=== PATIENT | female | born 1975 | race Caucasian/White ===

== ENCOUNTER → 2016-08-20 | Outpatient (CLI) | payer OTHER ==
[~2016-08-20] MED LIST: DEXL30CA2 PO; DEXL60CA PO; HYDR-3730 PO; LEVO25TA5 PO; LEVO75TA PO; PANT40TA2 PO; SUCR1TAB36 PO
--- OUTSIDE RECORDS SUMMARY | 2016-08-20 10:23 | XMS REPORT | Continuity of Care Document ---
Author Author [facility] Organization [facility] Address Unknown Phone Unavailable Care Team Providers Care Can Repairer Name Role Phone BIANCA KRAMER MD PCP Insurance Providers Payer Name Policy Number Subscriber Name Relationship [employer] [id number] Yoandy Byrd O 01 Advance Directives Directive Response Recorded Date/Time Advance Directives No 03/28/16 7:19am Health Care Power of Casting Technician No 03/28/16 7:19am Organ Donor No 03/28/16 7:19am Resuscitation Status Full Code 03/28/16 7:19am Problems No problem information available. Medications Current Home Medications Medication Dose Units Route Directions Days/Qty Instructions Start Date Dexlansoprazole 60 Mg 60 Mg Oral Daily 10/09/15 Pantoprazole Sodium 40 Mg 40 Mg Oral Daily 10/09/15 Levothyroxine Sodium 75 Mcg 75 Mcg Oral Daily 10/09/15 Hydrocodone/Acetaminophen 1 Each 1-2 Each Oral Every 4HRS 35 10/11/15 Past Home Medications Medication Directions Ordered Status Levothyroxine Sodium 25 Mcg Tablet, 25 Mcg Oral Daily 09/12/15 Discontinued Dexlansoprazole 30 Mg Cap., 30 Mg Oral Daily 09/12/15 Discontinued Pantoprazole Sodium 40 Mg Tablet.dr, 40 Mg Oral Daily 09/12/15 Discontinued Sucralfate 1 Gm Tablet, 1 Gm Oral Every 6 Hours 09/12/15 Discontinued Social History Social History Problem Response Recorded Date/Time Alcohol Use Rarely Uses 10/11/2015 8:28am Recreational Drug Use No 10/11/2015 8:28am Recent Foreign Travel No 03/28/2016 7:07am HIV/AIDS No 10/11/2015 8:28am Do you dip or chew tobacco? No 09/12/2015 8:45am Hospital Discharge Instructions No hospital discharge instructions. Plan of Care Discharge Date 03/28/16 7:49am Instructions/Education Provided DR. [facility] Prescriptions See Medication Section Functional Status No functional status results. Allergies, Adverse Reactions, Alerts Allergen Type Severity Reaction Status Last Updated No Known Allergies ([id number]) Allergy Unknown Active 08/17/15 Immunizations No immunization records. Vital Signs Acute Vital Signs Vital Response Date/Time Temperature (Fahrenheit) 97.5 degrees F (97.6 - 99.5) 03/28/2016 7:23am Temperature (Calculated Celsius) 36.01801 degrees C (36.4 - 37.5) 03/28/2016 7:23am Temperature Source Tympanic 03/28/2016 7:23am Pulse Rate (adult) 70 bpm (60 - 90) 03/28/2016 7:47am Respiratory Rate 16 bpm (12 - 24) 03/28/2016 7:47am O2 Sat by Pulse Oximetry 99 % (88 - 100) 03/28/2016 7:47am Blood Pressure 151/84 mm Hg 03/28/2016 7:47am Blood Pressure Mean 100 mm Hg 03/28/2016 7:23am Pain Numeric Pain Scale 0-No Pain 03/28/2016 7:47am Height (Feet) 5 feet 03/28/2016 7:19am Height (Inches) 7.00 inches 03/28/2016 7:19am Height (Calculated Centimeters) 170.751660 cm 03/28/2016 7:19am Weight (Pounds) 130 pounds 03/28/2016 7:19am Weight (Ounces) 0.0 oz 03/28/2016 7:19am Weight (Calculated Grams) 90716.01 gm 03/28/2016 7:19am Weight (Calculated Kilograms) 58.683965 kilograms 03/28/2016 7:19am Calculated BMI 20.4 03/28/2016 7:19am Results No known relevant diagnostic tests, laboratory data and/or discharge summary. Procedures No known history of procedures. Encounters Encounter Location Arrival/Admit Date Discharge/Depart Date Attending Provider Departed Clinic [facility] 03/28/16 7:07am 03/28/16 7: 49am SAMARA VAIL MD
--- NOTE | 2016-08-21 18:31 | Diagnostic Imaging Report ---
Bilateral screening mammogram with implants views. The current study was also evaluated with a Computer Aided Detection (CAD) system. INDICATION: Screening. No current complaints stated on the questionnaire. COMPARISON: 07/11/15. FINDINGS: The breasts are composed of extremely dense parenchyma which would decrease mammographic sensitivity. There are bilateral subpectoral symmetric-appearing implants with no significant change demonstrated from the prior exam. No suspicious cluster of calcification or architectural distortion is noted. Allowing for technique and positional differences, no suspicious change is seen. IMPRESSION: Dense breasts with no definite change. ACR BI-RADS Category 2: Benign findings. Result letter will be mailed to the patient. Note: At least 10% of breast cancer is not imaged by mammography. Dictated by: Dictated on workstation # [id number]
== END ==
LOC: RAD 10:20
PROVIDERS: ATTEND Obstetrics & Gynecology
DX: Z12.31 Encounter for screening mammogram for malignant neoplasm of breast (principal)

== ENCOUNTER → 2017-08-21 | Outpatient (CLI) | payer OTHER ==
--- NOTE | 2017-08-21 18:22 | Diagnostic Imaging Report ---
INDICATION: Screening. At this time there are no current complaints. EXAMINATION: Bilateral digital screening mammogram with CAD. The current study was also evaluated with a Computer Aided Detection (CAD) system. COMPARISON: This study was compared to the prior exams of 08/20/2016, 07/11/15 and 07/21/14. FINDINGS: There are bilateral breast implants in place. The implants appear to be intact. There is no sign of a extracapsular rupture of either implant. The fibroglandular tissue overlying each implant is dense. This does limit the sensitivity of this exam. Overall, there does not appear to been any significant change. There is no primary or secondary sign of malignancy noted. IMPRESSION: 1. There is no evidence for malignancy. 2. The implants appear stable. ACR BI-RADS Category 1: Negative. Result letter will be mailed to the patient. Note: At least 10% of breast cancer is not imaged by mammography. Dictated by: Dictated on workstation # [id number]
== END ==
LOC: RAD 10:00
PROVIDERS: ATTEND Nurse Practitioner Family
DX: Z12.31 Encounter for screening mammogram for malignant neoplasm of breast (principal); Z98.82 Breast implant status
CPT/HCPCS: 77067

== ENCOUNTER → 2018-08-27 | Outpatient (CLI) | payer OTHER ==
[2018-08-27 08:55] LABS: BASOPHILS # (AUTO) 0.1 10^3/uL (0.0-0.1); BASOPHILS % (AUTO) 1 % (0-10); EOSINOPHILS # (AUTO) 0.1 10^3/uL (0.0-0.3); EOSINOPHILS % (AUTO) 3 % (0-10); HEMATOCRIT 37 % (35-52); HEMOGLOBIN 12.2 G/DL (11.5-16.0); LYMPHOCYTES # (AUTO) 2.4 X 10^3 (1.0-4.0); LYMPHOCYTES % (AUTO) 53 % (12-44); MEAN CORPUSCULAR HEMOGLOBIN 30 PG (25-34); MEAN CORPUSCULAR HGB CONC 33 G/DL (32-36); MEAN CORPUSCULAR VOLUME 89 FL (80-99); MONOCYTES # (AUTO) 0.4 X 10^3 (0.0-1.0); MONOCYTES % (AUTO) 9 % (0-12); NEUTROPHILS # (AUTO) 1.5 X 10^3 (1.8-7.8); NEUTROPHILS % (AUTO) 34 % (42-75); PLATELET COUNT 256 10^3/uL (130-400); RED BLOOD COUNT 4.12 10^6/uL (4.35-5.85); RED CELL DISTRIBUTION WIDTH 12.9 % (10.0-14.5); WHITE BLOOD COUNT 4.5 10^3/uL (4.3-11.0)
[2018-08-27 09:20] LABS: ALANINE AMINOTRANSFERASE 18 U/L (0-55); ALBUMIN 4.6 GM/DL (3.2-4.5); ALKALINE PHOSPHATASE 80 U/L (40-136); BILIRUBIN,TOTAL 0.4 MG/DL (0.1-1.0); BUN/CREATININE RATIO 19; CALCIUM 9.7 MG/DL (8.5-10.1); CARBON DIOXIDE 25 MMOL/L (21-32); CHLORIDE 103 MMOL/L (98-107); CHOLESTEROL 233 MG/DL (< 200); CREATININE SERUM 0.94 MG/DL (0.60-1.30); GFR ESTIMATED > 60; GLUCOSE 86 MG/DL (70-105); HDL CHOLESTEROL 61 MG/DL (40-60); POTASSIUM 4.3 MMOL/L (3.6-5.0); SODIUM 139 MMOL/L (135-145); TOTAL PROTEIN 7.2 GM/DL (6.4-8.2); TRIGLYCERIDES 104 MG/DL (<150); VLDL CHOLESTEROL 21 MG/DL (5-40)
[2018-08-27 09:22] LABS: ERYTHROCYTE SEDIMENTATION RATE 21 MM/HR (0-20)
[2018-08-27 09:40] LABS: FREE T4 (FREE THYROXINE) 1.09 NG/DL (0.70-1.48)
--- NOTE | 2018-08-27 11:02 | Diagnostic Imaging Report ---
INDICATION: Routine screening. COMPARISON: 08/21/2017 and 07/11/2015. TECHNIQUE: 2D and 3D bilateral screening mammography was performed with CAD. FINDINGS: Both breasts are heterogeneously dense, limiting the sensitivity of mammography. Bilateral subpectoral breast implants are noted. The implant contours appear to be stable. The parenchymal pattern is stable. No mass or malignant appearing microcalcifications are seen. The axillae are unremarkable. IMPRESSION: No mammographic features suspicious for malignancy are identified. ACR BI-RADS Category 2: Benign findings. Result letter will be mailed to the patient. Note: At least 10% of breast cancer is not imaged by mammography. Dictated by: Dictated on workstation # [id number]
== END ==
LOC: RAD 08:31
PROVIDERS: ATTEND Obstetrics & Gynecology
DX: Z12.31 Encounter for screening mammogram for malignant neoplasm of breast (principal)
CPT/HCPCS: 36415; 77067; 80053; 80061; 84439; 84443; 85025; 85652

== ENCOUNTER → 2019-08-31 | Outpatient (CLI) | payer OTHER ==
--- NOTE | 2019-08-31 14:02 | Diagnostic Imaging Report ---
INDICATION: Routine screening. COMPARISON: 08/27/2018 and 08/21/2017. TECHNIQUE: 2D and 3D bilateral screening mammography was performed with CAD. FINDINGS: Bilateral subpectoral breast implants are noted. The implant contours remain stable. Both breasts show marked parenchymal heterogeneity and increased density, limiting the sensitivity of mammography. No dominant mass or malignant appearing microcalcifications are seen. The axillae are unremarkable. IMPRESSION: No mammographic features suspicious for malignancy are identified. ACR BI-RADS Category 2: Benign findings. Result letter will be mailed to the patient. Note: At least 10% of breast cancer is not imaged by mammography. Dictated by: Dictated on workstation # [id number]
== END ==
LOC: RAD 10:06
PROVIDERS: ATTEND Obstetrics & Gynecology
DX: Z12.31 Encounter for screening mammogram for malignant neoplasm of breast (principal)
CPT/HCPCS: 77067

== ENCOUNTER → 2021-01-31 | Outpatient (CLI) | payer OTHER ==
--- NOTE | 2021-01-31 13:18 | Diagnostic Imaging Report ---
Indication: Routine screening. Comparison is made with prior mammogram from 08/31/2019 and 08/27/2018. 2-D and 3-D bilateral screening mammography was performed with CAD. Both breasts are heterogeneously dense, limiting the sensitivity of mammography. Patient has bilateral breast implants. Implant contours are smooth. No mass or malignant appearing microcalcifications are seen. Axillae are unremarkable. IMPRESSION: BI-RADS Category 2 No mammographic features suspicious for malignancy are identified. ACR BI-RADS Category 2: Benign findings. Result letter will be mailed to the patient. Note: At least 10% of breast cancer is not imaged by mammography. Dictated by: Dictated on workstation # [id number]
== END ==
LOC: RAD 10:30
PROVIDERS: ATTEND Obstetrics & Gynecology
DX: Z12.31 Encounter for screening mammogram for malignant neoplasm of breast (principal)
CPT/HCPCS: 77063; 77067

== ENCOUNTER → 2021-05-08 | Outpatient (CLI) | payer OTHER ==
--- NOTE | 2021-05-08 14:15 | Diagnostic Imaging Report ---
Clinical indication: Patient with chronic low back pain. Patient having left leg numbness and increased low back pain. EXAM: MRI of the lumbar spine performed without IV contrast. Sequences include sagittal T2, sagittal T1, sagittal T2 fat-sat, and axial T2. COMPARISON: MRI of the lumbar spine without contrast dated 12/29/2015. FINDINGS: Again seen chronic bilateral L3 spondylolysis. There is no adjacent marrow edema. There is Modic type I degenerative signal changes involving the L3-L4 endplates. There is progression of hypertrophic disk spurs at the L3-L4 level. There is lumbar spine facet arthropathy which has progressed at the L3-L4 level. The visualized portions of the distal thoracic spinal cord, conus medullaris, and cauda equina nerve roots are unremarkable. The conus medullaris tip is seen at the lower L1 vertebral body level. There is no significant paraspinal soft tissue abnormality. T12-L1 and L1-L2: Unremarkable. L2-L3: There is moderate bilateral facet arthropathy which has slightly progressed. There is no significant central spinal canal or neural foramen narrowing. L3-L4: Again seen chronic bilateral L3 spondylolysis. There is development of roughly 1 to 2 mm of grade 1 anterolisthesis of L3 on L4. There is progression of severe disk disease changes with diffuse disk bulge with severe loss of disk space height. There is endplate irregularity. There is progression of spurs in the bilateral foraminal regions with slight decreased size of the disk herniation components. There is mild central canal narrowing. There is mild right neural foramen narrowing and severe left neural foramen narrowing which has slightly progressed. L4-L5: There is development of a mild diffuse disk bulge and mild bilateral facet arthropathy. There is mild central canal narrowing and moderate bilateral neural foramen narrowing which has progressed. L5-S1: There is mild bilateral facet arthropathy. There is no significant central spinal canal or neural foramen narrowing. IMPRESSION: 1: There is interval progression of multilevel lumbar spine degenerative disk disease which is described above. 2: There is again seen chronic bilateral L3 spondylolysis with interval development of subtle grade 1 anterolisthesis of L3 on L4. There is progression of severe disk disease at the L3-L4 level with severe left neural foramen narrowing which has progressed. Dictated by: Dictated on workstation # [id number]
== END ==
LOC: RAD 10:34
PROVIDERS: ATTEND Family Medicine Sports Medicine
DX: M47.816 Spondylosis without myelopathy or radiculopathy, lumbar region (principal); M47.817 Spondylosis without myelopathy or radiculopathy, lumbosacral region; M51.26 Other intervertebral disc displacement, lumbar region; M51.36 Other intervertebral disc degeneration, lumbar region; M48.061 Spinal stenosis, lumbar region without neurogenic claudication; M43.16 Spondylolisthesis, lumbar region
CPT/HCPCS: 72148

== ENCOUNTER 2021-05-21 05:40 | Outpatient (CLI) | payer OTHER ==
[~2021-05-21] VITALS: Ht 170.2 cm; Wt 63.6 kg
--- NOTE | 2021-05-21 06:24 | HISTORY AND PHYSICAL ---
DATE OF SERVICE: COLONOSCOPY HISTORY AND PHYSICAL DATE OF ADMISSION: ____. HISTORY OF PRESENT ILLNESS: The patient is a 45-year-old white female referred by Dr. Richardson for her first screening colonoscopy. She denies bright red blood per rectum or melena and has no known family history for colon cancer, so she is deemed to be of average risk. She does; however, report that she only goes about every three days and then about half the time has to strain in order to pass harder stool, the other half not. This has been an issue for many years. She denies any associated abdominal pain or cramping. PAST SURGICAL HISTORY: Significant for cholecystectomy four years ago, tonsillectomy and adenoidectomy many years ago and at the age of 15, had a left cyst removed from her wrist, presumed ganglion. PAST MEDICAL HISTORY: Significant for hypothyroidism for which she is on Synthroid 75 mcg daily. She has some reflux for which she is on Protonix 40 mg daily and has disk herniation, lumbar spine with some back pain that she takes Voltaren for. 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 She is fully vaccinated for COVID. FAMILY HISTORY: Father living in his 70s and mother living in her 70s with no significant health problems. PHYSICAL EXAMINATION: GENERAL: Reveals a fit appearing white female in no acute distress. VITAL SIGNS: Blood pressure 134/70 and weight 153. HEENT: Unremarkable. CHEST: Clear to auscultation. CARDIOVASCULAR: Reveals a regular rate and rhythm without murmur, S3 or S4. ABDOMEN: Soft, supple without mass, organomegaly or tenderness. EXTREMITIES: Reveal no cyanosis, clubbing or edema. ASSESSMENT AND PLAN: The patient is set up for her first screening colonoscopy, judged to be of average risk. Considering lumbar surgery and after discussion, no abdominal pain with symptoms suggesting the possibility of pelvic floor dysfunction, possibly aggravated by nerve root compression. I did recommend consideration for seeing Lakisha Evans, a pelvic floor physical therapist. She also has a history suggesting stress urinary incontinence. Prep instructions with Suprep kit were given and questions were answered. I thank you for the referral of this pleasant lady. Job ID: [id number] DocumentID: [id number] Dictated Date: 04/29/2021 16:47:00 Roller Staker Date: 04/29/2021 17:07:36 Dictated By: MELISSA BALBUENA MD
[2021-05-21] MEDS ORDERED: ASCO500T17 PO (12:21)
[2021-05-21] MEDS ORDERED: DICL75TA2 PO (12:21)
[2021-05-21] MEDS ORDERED: OMG1KC PO (12:21)
[2021-05-21] MEDS ORDERED: ZINC50TA11 PO (12:21)
[2021-05-21] MEDS ORDERED: MV-M1TAB20 PO (12:21)
== END 2021-05-21 14:15 | disposition home or self-care (01) ==
LOC: PREOP 05:40
PROVIDERS: ATTEND Internal Medicine
DX: Z01.818 Encounter for other preprocedural examination (principal)

== ENCOUNTER 2021-05-24 07:31 | Day surgery (SDC) | payer OTHER ==
[2021-05-24] VITALS (7 sets, daily range): BP systolic 107–128; BP diastolic 59–81
[~2021-05-24] VITALS: Ht 170.2 cm; Wt 63.6 kg
[~2021-05-24 07:31] MED LIST changes: +ASCO500T17 PO; +DICL75TA2 PO; +MV-M1TAB20 PO; +OMG1KC PO; +ZINC50TA11 PO
[2021-05-24] MEDS ORDERED: LACTATED RINGERS 1,000 ML IV ONE (07:36)
[2021-05-24] MEDS ORDERED: LACTATED RINGERS 1,000 ML IV STA (07:42)
[2021-05-24] MEDS ORDERED: LIDOCAINE JELLY 2% 6 ML SYRINGE MM PRN (07:45)
--- NOTE | 2021-05-24 07:48 | Pre-Op Note & Conscious Sedat ---
Pre-Operative Progress Note H&P Reviewed The H&P was reviewed, patient examined and no changes noted. Date H&P Reviewed: May 24, 2021 Time H&P Reviewed: 07:48 Conscious Sedation Pre-Proced ASA Score 1 For ASA 3 and 4: Consider anesthesia and medical clearance. Also, for patients with a history of failed moderate sedation consider anesthesia. Airway Lungs Heart ASA score ASA 1: a normal healthy patient ASA 2: a patient with a mild systemic disease (mid diabetes, controlled hypertension, obesity ASA 3: a patient with a severe systemic disease that limits activity (angina, COPD, prior Myocardial infarction) ASA 4: a patient with an incapacitating disease that is a constant threat to life (CHF, renal failure) ASA 5: a moribund patient not expected to survive 24 hrs. (ruptured aneurysm) ASA 6: a declared brain- patient whose organs are being harvested. For emergent operations, add the letter E after the classification Mallampati Classification Grade 2 Sedation Plan Analgesia, Amnesia, Plan communicated to team members, Discussed options with patient/fam, Discussed risks with patient/fam The patient is an appropriate candidate to undergo the planned procedure, sedation, and anesthesia. The patient immediately re-assessed prior to indication. MELISSA BALBUENA MD May 24, 2021 07:48
[2021-05-24] MEDS ORDERED: MIDAZOLAM 2 MG/2 ML (VERSED) VIAL ONE (08:35)
[2021-05-24] MEDS ORDERED: PROPOFOL INJECTION 0 ML IV ONE (08:35)
[2021-05-24] MEDS ORDERED: PROPOFOL INJECTION 50 ML IV ONE (09:02)
--- NOTE | 2021-05-24 09:37 | Anesthesia-General Post-Op ---
MAC Patient Condition Mental Status/LOC: Same as Preop Cardiovascular: Satisfactory Nausea/Vomiting: Absent Respiratory: Satisfactory Pain: Controlled Complications: Absent Post Op Complications Complications None Follow Up Care/Instructions Patient Instructions None needed. Anesthesiology Discharge Order Discharge Order Patient is doing well, no complaints, stable vital signs, no apparent adverse anesthesia problems. No complications reported per nursing. ADELAIDA LÓPEZ CRNA May 24, 2021 09:37
--- NOTE | 2021-05-24 14:02 | OPERATIVE REPORT ---
DATE OF SERVICE: COLONOSCOPY SUMMARY INDICATION FOR THE PROCEDURE: Screening colonoscopy. DESCRIPTION OF PROCEDURE: Prior to undergoing colonoscopy, digital rectal evaluation was performed. Anal sphincter tone was normal and the perianal reflexes intact. There appears to be left lateral rectocele on digital inspection, which was otherwise unremarkable. No evidence for internal or external hemorrhoids were noted. The colonoscope was then inserted into the rectum and under direct visualization advanced to cecum. The cecum was identified by identification of ileocecal valve and cecal strap. Photographic documentation was obtained. Careful inspection was made as colonoscope withdrawn. Quality of prep was good. FINDINGS: There was no evidence for internal or external hemorrhoids. The rectum, sigmoid colon, descending colon, splenic flexure, transverse colon, and hepatic flexure were unremarkable. Present in the mid ascending colon was a diminutive 3 x 5 mm sessile polyp. It was biopsied and ablated with no subsequent blood loss. Remainder of the ascending colon and cecum were unremarkable. ASSESSMENT: One diminutive sessile polyp was removed via hot forceps from the mid ascending colon. We will await histopathology report, but if this is a neoplastic polyp, we recommend repeat surveillance colonoscopy in 5 years. Digital rectal evaluation under anesthesia suggests the possibility of left lateral rectocele. No other abnormalities noted on today's procedure. I thank you for the referral of this pleasant lady. Job ID: [id number] DocumentID: [id number] Dictated Date: 05/24/2021 09:28:22 Tunnel Elastic Operator Chainstitch Date: 05/24/2021 14:01:02 Dictated By: MELISSA BALBUENA MD MTDD
--- NOTE | 2021-05-28 12:56 | HISTORY AND PHYSICAL ---
DATE OF SERVICE: 05/24/2021 COLONOSCOPY HISTORY AND PHYSICAL DATE OF ADMISSION: HISTORY OF PRESENT ILLNESS: The patient is a 45-year-old white female referred by Dr. Richardson for her first screening colonoscopy. She denies bright red blood per rectum or melena and has no known family history for colon cancer, so she is deemed to be of average risk. She does; however, report that she only goes about every three days and then about half the time has to strain in order to pass harder stool. This has been an issue for many years. She denies any associated abdominal pain or cramping. PAST SURGICAL HISTORY: Significant for cholecystectomy four years ago, tonsillectomy and adenoidectomy many years ago and at the age of 15, had a left cyst removed from her wrist, presumed ganglion. PAST MEDICAL HISTORY: Significant for hypothyroidism for which she is on Synthroid 75 mcg daily. She has reflux for which she is on Protonix 40 mg daily and has disk herniation involving the lumbar spine with some back pain that she takes Voltaren for. 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 She is fully vaccinated for COVID. FAMILY HISTORY: Father living in his 70s and mother living in her 70s with no significant health problems. PHYSICAL EXAMINATION: GENERAL: Reveals a fit appearing white female in no acute distress. VITAL SIGNS: Blood pressure 134/70 and weight 153. HEENT: Unremarkable. CHEST: Clear to auscultation. CARDIOVASCULAR: Reveals a regular rate and rhythm without murmur, S3 or S4. ABDOMEN: Soft, supple without mass, organomegaly or tenderness. EXTREMITIES: Reveal no cyanosis, clubbing or edema. ASSESSMENT AND PLAN: The patient is set up for her first screening colonoscopy, judged to be of average risk. Considering lumbar surgery and after discussion, no abdominal pain with symptoms suggesting the possibility of pelvic floor dysfunction, possibly aggravated by nerve root compression. I did recommend consideration for seeing Lakisha Evans, a pelvic floor physical therapist. She also has a history suggesting stress urinary incontinence. Prep instructions with Suprep kit were given and questions were answered. I thank you for the referral of this pleasant lady. Job ID: [id number] DocumentID: [id number] Dictated Date: 04/29/2021 16:47:00 Licensed Audiologist Date: 04/29/2021 17:07:36 Dictated By: MELISSA BALBUENA MD <Dictated by MELISSA BALBUENA MD> <Electronically signed by MELISSA BALBUENA MD> 05/24/21 0717 [facility]
== END 2021-05-24 10:25 | disposition home or self-care (01) ==
LOC: ENDO 07:31
PROVIDERS: ATTEND Internal Medicine
DX: Z12.11 Encounter for screening for malignant neoplasm of colon (principal); K63.5 Polyp of colon; K63.89 Other specified diseases of intestine; K21.9 Gastro-esophageal reflux disease without esophagitis; E03.9 Hypothyroidism, unspecified; Z79.899 Other long term (current) drug therapy; Z79.890 Hormone replacement therapy; Z90.49 Acquired absence of other specified parts of digestive tract
CPT/HCPCS: 84703

== ENCOUNTER → 2022-04-07 | Outpatient (CLI) | payer OTHER ==
--- NOTE | 2022-04-07 11:52 | Diagnostic Imaging Report ---
INDICATION: Routine screening. Comparison is made with prior mammogram from 01/31/2021 and 08/29/2019. 2-D and 3-D bilateral screening mammography was performed with CAD. Bilateral subpectoral breast implants are again noted. Implant contours remain smooth. No definite evidence of extracapsular rupture is identified. Both breasts remain heterogeneously dense, limiting the sensitivity of mammography. The overall parenchymal pattern is stable. No mass or malignant-appearing microcalcifications are seen. Axillae are unremarkable. IMPRESSION: No mammographic features suspicious for malignancy are identified. ACR BI-RADS Category 2: Benign findings. Result letter will be mailed to the patient. Note: At least 10% of breast cancer is not imaged by mammography. BI-RADS Category 2 Dictated by: Dictated on workstation # [id number]
== END ==
LOC: RAD 10:45
PROVIDERS: ATTEND Obstetrics & Gynecology
DX: Z12.31 Encounter for screening mammogram for malignant neoplasm of breast (principal)
CPT/HCPCS: 77063; 77067

== ENCOUNTER → 2023-04-17 | Outpatient (CLI) | payer OTHER ==
--- NOTE | 2023-04-17 12:58 | Diagnostic Imaging Report ---
INDICATION: Routine screening. Comparison is made with prior mammogram from 04/07/2022 and 01/31/2021. 2-D and 3-D bilateral screening mammography was performed with CAD. Bilateral subpectoral breast implants again noted. Implant contours remain stable without evidence of extracapsular rupture. Both breasts remain heterogeneously dense, limiting the sensitivity of mammography. No mass or malignant-appearing microcalcifications are seen. Axillae are unremarkable. IMPRESSION: No mammographic features suspicious for malignancy are identified. ACR BI-RADS Category 2: Benign findings. Result letter will be mailed to the patient. Note: At least 10% of breast cancer is not imaged by mammography. BI-RADS Category 2 Dictated by: Dictated on workstation # [id number]
== END ==
LOC: RAD 10:44
PROVIDERS: ATTEND Obstetrics & Gynecology
DX: Z12.31 Encounter for screening mammogram for malignant neoplasm of breast (principal)
CPT/HCPCS: 77063; 77067

== ENCOUNTER → 2023-06-23 | Outpatient (CLI) | payer OTHER ==
--- NOTE | 2023-06-23 14:40 | Diagnostic Imaging Report ---
EXAMINATION: Magnetic resonance imaging of the pelvis and right hip without contrast DATE: June 23, 2023. COMPARISON: None. INDICATION: 48-year-old female, right hip pain. TECHNIQUE: Magnetic Resonance Imaging sequences were performed of the pelvis and right hip without contrast. TENDONS AND MUSCLES: The gluteus katy muscles and their origins and insertions are intact bilaterally. The tendons and muscles of the greater trochanter - gluteus minimus, piriformis and gluteus medius - are intact bilaterally. Both common hamstring attachments on the ischial tuberosities are intact and the extensor muscles of the thigh are intact. The visualized portions of the flexors and adductor muscles of the thigh and their attachments on the pelvis and hips are intact. Both iliopsoas and iliacus muscles are intact. The bilateral iliopsoas tendons are intact. HIPS AND SACROILIAC JOINTS: The contours of the femoral heads and acetabuli are smooth and symmetric. There is no identified fluid-filled labral tear or paralabral cyst. There is no identified articular cartilage defect of the right hip. There is no right or left hip joint effusion. There is a small subchondral cyst in the left acetabulum. The sacroiliac joints are unremarkable. LUMBAR SPINE: There is posterior spinal fusion hardware and L3-L4. There is moderate to severe disc loss at L4-L5. There is otherwise limited assessment of the lumbar spine. BONE: There is no acute fracture, bone contusion, or evidence of osteonecrosis. BURSAE AND SOFT TISSUES: The bursae and soft tissues surrounding the pelvis and hips are within normal limits. IMPRESSION: 1. Grossly unremarkable evaluation of both hip joints. 2. Intact muscles and tendons. 3. No acute fracture, bone contusion, or evidence of osteonecrosis. 4. Please see separately dictated MRI lumbar spine report for findings of the lumbar spine. Dictated by: Dictated on workstation # [id number]
--- NOTE | 2023-06-23 16:11 | Diagnostic Imaging Report ---
PROCEDURE: MRI lumbar spine without contrast. TECHNIQUE: Multiplanar, multisequence MRI of the lumbar spine was performed without contrast. INDICATION: Low back pain. Right hip pain. COMPARISON: 05/08/2021. FINDINGS: 5 lumbar type vertebral bodies are visualized with the last well-formed disc space designated L5-S1. No acute fracture or dislocation is seen in the lumbar spine. There has been interval posterior fusion at L3-L4. Modic type I endplate degenerative changes are present at the L4-L5 level which is new. No suspicious focal osseous lesions. The conus terminates at the L1 level. No masses are seen associated with the conus or nerve roots of the cauda equina. No epidural collections are identified. Multilevel degenerative changes are seen in the lumbar spine with disc bulges, facet hypertrophy, and buckling of the ligamentum flavum. T12-L1: No significant spinal canal or foraminal stenosis. L1-L2: No significant spinal canal or foraminal stenosis. L2-L3: No significant spinal canal or foraminal stenosis. L3-L4: Marginal osteophytes and facet hypertrophy results in mild spinal canal narrowing and mild right and [id number]-bc-ypiasxda left foraminal narrowing. L4-L5: Broad-based disc bulge, facet hypertrophy, and buckling of the ligamentum flavum results in mrgguorf-[id number]-exbqlp spinal canal stenosis and cbbxrdsa-mx-[id number] right and moderate left foraminal stenosis. L5-S1: Broad-based disc bulge, facet hypertrophy, and buckling of the ligamentum flavum results in mild spinal canal narrowing and mild bilateral foraminal narrowing. Paravertebral soft tissues are unremarkable. IMPRESSION: 1. No acute fracture or dislocation in the lumbar spine. 2. Multilevel degenerative changes in the lumbar spine, greatest at L4-L5. These findings have progressed since the prior exam. 3. Modic type I endplate degenerative changes at the L4-L5 level, new since the prior exam. 4. Interval posterior fusion at L3-L4. Dictated by: Dictated on workstation # [id number]
== END ==
LOC: RAD 12:58
PROVIDERS: ATTEND Orthopaedic Surgery Orthopaedic Surgery of the Spine
DX: M25.551 Pain in right hip (principal); M47.816 Spondylosis without myelopathy or radiculopathy, lumbar region; Z98.1 Arthrodesis status
CPT/HCPCS: 72148; 73721